=== PATIENT | female | born 1970 | race Caucasian/White ===

== ENCOUNTER 2022-04-30 03:18 | Emergency (ER) | payer OTHER ==
[2022-04-30 03:35] VITALS: BP 116/90; PULSE 89; TEMP 97.8; BMI 24.7
[2022-04-30] MEDS ORDERED: LACTATED RINGERS SOLUTION 1000 ML INFUS.BAG IV ONE (03:42)
[2022-04-30] MEDS ORDERED: ONDANSETRON 4 MG/2 ML VIAL IVPUSH ONE ×2 (03:42→05:37)
[2022-04-30 04:19] LABS: BASO % 0.9 % (0-2.0); EOS % 3.3 % (0-4.5); HEMATOCRIT 39.9 % (32.4-45.2); HEMOGLOBIN 13.3 GM/dL (10.7-15.3); LYMPH % 35.7 % (8-40); MCH 30.6 pg (25.7-33.7); MCHC 33.2 g/dl (32.0-36.0); MEAN CELL VOLUME 92.2 fl (80-96); MONO % 8.5 % (3.8-10.2); NEUT % 51.6 % (42.8-82.8); PLATELET COUNT 278 10^3/uL (134-434); RBC 4.33 M/mm3 (3.60-5.2); RDW 13.1 % (11.6-15.6); WHITE BLOOD COUNT 6.2 K/mm3 (4.0-10.0)
[2022-04-30 04:47] LABS: CHLORIDE 108 mmol/L (98-107); SODIUM 142 mmol/L (136-145)
[2022-04-30 04:50] LABS: ALBUMIN 4.1 g/dl (3.4-5.0); ANION GAP 3 MMOL/L (8-16); BLOOD UREA NITROGEN 12.4 mg/dL (7-18); CO2 31 mmol/L (21-32); GLUCOSE,RANDOM 129 mg/dL (74-106)
[2022-04-30 04:50] LABS: METHADONE, UR NEGATIVE (NEGATIVE); PHENCYCLIDINE,URINE NEGATIVE (NEGATIVE); URINE BENZODIAZEPINES NEGATIVE (NEGATIVE)
[2022-04-30 04:51] LABS: OPIATES, URI NEGATIVE (NEGATIVE); URINE AMPHETAMINES NEGATIVE (NEGATIVE); URINE BARBITURATES NEGATIVE (NEGATIVE)
[2022-04-30 04:53] LABS: CREATININE 0.8 mg/dL (0.55-1.3); SGOT/AST 12 U/L (15-37); SGPT/ALT 17 U/L (13-61)
[2022-04-30 04:55] LABS: BILIRUBIN,TOTAL 0.3 mg/dL (0.2-1); TOT PROT 7.3 g/dl (6.4-8.2)
[2022-04-30 04:56] LABS: ALK PHOS 64 U/L (45-117)
[2022-04-30 04:56] LABS: COCAINE, UR NEGATIVE (NEGATIVE)
[2022-04-30] MEDS ORDERED: ONDANSETRON 4 MG/2 ML VIAL ONE (05:46)
[2022-04-30] MEDS ORDERED: DIPHTH,PERTUSS(ACELL),TET 0.5 ML DISP.SYRIN IM ONE ×2 (05:47)
[2022-04-30] MEDS ORDERED: LIDOCAINE 2%/EPINEPHRINE 1:100000 (50 ML MD VIAL) INF ONE (06:03)
[2022-04-30] MEDS ORDERED: LIDOCAINE 1%/EPI 1:100000 (20 ML MULTI DOSE VIAL) ONE (06:06)
== END 2022-04-30 06:41 | disposition home or self-care (01) ==
LOC: JER 03:18
PROC: 0HQ0XZZ Repair Scalp Skin, External Approach (ICD-10-PCS; principal; 2022-04-30)
DX: R11.2 Nausea with vomiting, unspecified (principal); S01.01XA Laceration without foreign body of scalp, initial encounter; W19.XXXA Unspecified fall, initial encounter
CPT/HCPCS: 0241U-QW; 36415; 70450-TC; 72125-TC; 80053; 80307; 82550; 84484; 85025; 93005; 93010; 99285-25

== ENCOUNTER 2022-05-07 10:08 | Emergency (ER) | payer OTHER ==
[2022-05-07 10:13] VITALS: BP 119/67; PULSE 74; TEMP 97
== END 2022-05-07 11:10 | disposition home or self-care (01) ==
LOC: JERFT 10:08
DX: Z48.02 Encounter for removal of sutures (principal)
CPT/HCPCS: 99281-25